=== PATIENT | male | born 1950 | race Two or more races ===

== ENCOUNTER 2017-05-20 15:29 | Observation (INO) | payer MEDICAID ==
[2017-05-20] MEDS ORDERED: ASPIRIN 81 MG TABLET, CHEWABLE PO ONE (16:43)
--- NOTE | 2017-05-20 16:49 | ER Document Report ---
ED Medical Screen (RME) - General Chief Complaint: Syncope Stated Complaint: SYNCOPE Time Seen by Provider: 05/20/17 16:42 Notes: History from Triage obtained using PCT as Distribution Driver. Patient is a 66- year-old male, past medical history hypertension, hypothyroidism, GERD, presents after a syncopal episode while he was working in the heat today. He felt lightheaded and his heart was racing prior to the incident. He did not hit his head and is currently asymptomatic at this time. Patient denies chest pain, shortness of breath, nausea, vomiting, headache, numbness, tingling, focal weakness or abdominal pain. PE: RRR. CTAB. Abdomen soft and non-tender I have greeted and performed a rapid initial assessment of this patient. A comprehensive ED assessment and evaluation of the patient, analysis of test results and completion of the medical decision making process will be conducted by additional ED providers. TRAVEL OUTSIDE OF THE [place] IN LAST 30 DAYS: No - Related Data Allergies/Adverse Reactions: No Known Allergies Allergy (Verified 05/20/17 16:38) Past Medical History - Social History Frequency of alcohol use: None Drug Abuse: None Renal/ Medical History: Denies: Hx Peritoneal Dialysis Surgical Hx: Negative Physical Exam - Vital signs Vitals: Temp Pulse Resp BP Pulse Ox 98.0 F 60 20 143/91 H 95 05/20/17 15:46 05/20/17 15:46 05/20/17 15:46 05/20/17 15:46 05/20/17 15:46 Course - Vital Signs Vital signs: Temp Pulse Resp BP Pulse Ox 98.0 F 60 18 143/91 H 95 05/20/17 15:46 05/20/17 15:46 05/20/17 16:36 05/20/17 15:46 05/20/17 15:46
[2017-05-20 17:12] LABS: ABSOLUTE BASOPHILS # (AUTO) 0.1 10^3/uL (0.0-0.2); ABSOLUTE EOSINOPHILS # (AUTO) 0.1 10^3/uL (0.0-0.6); ABSOLUTE MONOCYTES (AUTO) 0.8 10^3/uL (0.1-1.4); ABSOLUTE NEUT (AUTO) 4.1 10^3/uL (1.7-8.2); BASOPHILS % (AUTO) 0.8 % (0-2); EOSINOPHILS % (AUTO) 1.5 % (0-6); HEMATOCRIT 45.6 % (37.9-51.0); HEMOGLOBIN 14.5 g/dL (13.5-17.0); HGB HCT DIFFERENCE -2.1; LYMPHOCYTES % (AUTO) 27.6 % (13-45); MEAN CORPUSCULAR HGB CONC 31.9 g/dL (32.0-36.0); MEAN CORPUSCULAR VOLUME 72 fl (80-97); MONOCYTES % (AUTO) 11.9 % (3-13); RED BLOOD COUNT 6.32 10^6/uL (4.35-5.55); RED CELL DISTRIBUTION WIDTH 16.5 % (11.5-14.0); SEGMENTED NEUTROPHILS % (AUTO) 58.2 % (42-78); WHITE BLOOD COUNT 7.1 10^3/uL (4.0-10.5)
--- NOTE | 2017-05-20 17:22 | RADIOLOGY REPORT (SQ) ---
EXAM DESCRIPTION: CHEST SINGLE VIEW COMPLETED DATE/TIME: 05/20/2017 5:09 pm REASON FOR STUDY: syncope COMPARISON: None. EXAM PARAMETERS: NUMBER OF VIEWS: One view. TECHNIQUE: Single frontal radiographic view of the chest acquired. RADIATION DOSE: NA LIMITATIONS: None. FINDINGS: LUNGS AND PLEURA: No opacities, masses or pneumothorax. No pleural effusion. MEDIASTINUM AND HILAR STRUCTURES: No masses. Contour normal. HEART AND VASCULAR STRUCTURES: Heart normal in size. Normal vasculature. BONES: No acute findings. HARDWARE: None in the chest. OTHER: Likely nipple shadows upper lower lung zone. IMPRESSION: NO ACUTE RADIOGRAPHIC FINDING IN THE CHEST. TECHNICAL DOCUMENTATION: JOB ID: [id number]
[2017-05-20 17:23] LABS: ADD ON TESTING BLD IN LAB ACKNOWLEDGE
[2017-05-20] MEDS ORDERED: NORMAL SALINE 1000 ML 1,000 ML IV PRN ×2 (17:40→19:19)
[2017-05-20 17:42] LABS: ALANINE AMINOTRANSFERASE 25 U/L (21-72); ALBUMIN 4.2 g/dL (3.5-5.0); ALKALINE PHOSPHATASE 105 U/L (38-126); ANION GAP 10 (5-19); ASPARTATE AMINO TRANSFERASE 28 U/L (17-59); BILIRUBIN,DIRECT 0.3 mg/dL (0.0-0.4); BILIRUBIN,TOTAL 0.6 mg/dL (0.2-1.3); BLOOD UREA NITROGEN 14 mg/dL (7-20); CALCIUM 9.5 mg/dL (8.4-10.2); CARBON DIOXIDE 28 mmol/L (22-30); CHLORIDE 101 mmol/L (98-107); CREATININE RESULT 1.12 mg/dL (0.52-1.25); GLUCOSE 98 mg/dL (75-110); POTASSIUM 4.6 mmol/L (3.6-5.0); SODIUM 138.8 mmol/L (137-145); TOTAL PROTEIN 7.6 g/dL (6.3-8.2)
[2017-05-20] MEDS ORDERED: ASPIRIN 325 MG TABLET PO ONE (17:45)
--- NOTE | 2017-05-20 17:45 | ER Document Report ---
ED General - General Chief Complaint: Syncope Stated Complaint: SYNCOPE Time Seen by Provider: 05/20/17 16:42 Notes: 66-year-old male with a history of hypertension and diabetes as well as a possible positive stress test per records in 2012 presents with an episode of chest pain and palpitations followed by syncope without much prodrome. He woke up feeling well but tired. This was acute, happened about 2 hours ago and is now resolved. He was out of the sun working as and that is what he attributes it to. He denies nausea vomiting. Currently pain-free without symptoms. TRAVEL OUTSIDE OF THE [place] IN LAST 30 DAYS: No - Related Data Allergies/Adverse Reactions: No Known Allergies Allergy (Verified 05/20/17 16:38) Past Medical History - Social History Smoking Status: Never Smoker Frequency of alcohol use: None Drug Abuse: None Family History: None Patient has suicidal ideation: No Patient has homicidal ideation: No Renal/ Medical History: Denies: Hx Peritoneal Dialysis Surgical Hx: Negative Review of Systems - Review of Systems Notes: GEN: Denies fever, chills, weight loss ENT: Denies sore throat, nasal discharge, ear pain EYES: Denies blurry vision, eye pain, discharge CV: D chest pain, palpitations, syncope RESP: Denies cough, shortness of breath, wheezing GI: Denies abdominal pain, nausea, vomiting, diarrhea MSK: Denies joint pain/swelling, edema, SKIN: Denies rash, skin lesions LYMPH: Denies swollen glands/lymph nodes NEURO: Denies headache, focal weakness or numbness, dizziness PSYCH: Denies depression, suicidal or homicidal ideation Physical Exam - Vital signs Vitals: Temp Pulse Resp BP Pulse Ox 98.0 F 60 20 143/91 H 95 05/20/17 15:46 05/20/17 15:46 05/20/17 15:46 05/20/17 15:46 05/20/17 15:46 - Notes Notes: General: No acute distress, well-nourished Head: Atraumatic, normocephalic ENT: Mouth normal, oropharynx moist, no exudates or tonsillar enlargement Eyes: Conjunctiva normal, pupils equal, lids normal Neck: No JVD, supple, no guarding CVS: Normal rate, regular rhythm, no murmurs Resp: No resp distress, equal and normal breath sounds bilaterally GI: Nondistended, soft, no tenderness to palpation, no rebound or guarding Ext: No deformities, no edema, normal range of motion in upper and lower ext Skin: No rash, warm Lymphatic: No lymphadeopathy noted Neuro: Awake, alert. Face symmetric. Course - Re-evaluation Re-evalutation: 05/20/17 17:45 66-year-old male with possible history of coronary disease presenting with chest pain palpitations followed by syncope. Now asymptomatic and very well- appearing however the story is quite concerning, he has some changes on his ECG which I believe are likely due to either benign early repolarization or pericarditis, however he has no signs and symptoms of pericarditis. There is no ST depression and the ST elevation is concave appearing and this is not a STEMI in my opinion at this time. He will be given aspirin, hydration and will be admitted for syncope workup. 05/20/17 18:21 Workup negative. Admitted, spoke with Dr. Jerome who will pass admission off Dr. Cummings. Observation telemetry. - Vital Signs Vital signs: Temp Pulse Resp BP Pulse Ox 98.0 F 46 L 16 160/99 H 98 05/20/17 15:46 05/20/17 17:22 05/20/17 17:22 05/20/17 17:22 05/20/17 17:22 - Laboratory Result Diagrams: 05/20/17 17:00 05/20/17 17:00 Laboratory results interpreted by me: 05/20/17 17:00 RBC 6.32 H MCV 72 L MCH 23.0 L MCHC 31.9 L RDW 16.5 H - EKG Interpretation by Ut EKG shows normal: Sinus rhythm Rhythm: NSR Additional EKG results interpreted by me: 05/20/17 17:44 There is [address] elevation in lead II, as well as V3 through V5 with a fishhook in V5. Discharge - Discharge Clinical Impression: Syncope Qualifiers: Syncope type: unspecified Qualified Code(s): R55 - Syncope and collapse Admitting Provider: Hospitalist Unit Admitted: Telemetry
[2017-05-20] MEDS ORDERED: ACETAMINOPHEN 325 MG TABLET PO PRN (19:19)
[2017-05-20] MEDS ORDERED: ENOXAPARIN SODIUM INJ 40 MG/0.4 ML DISP.SYRIN SUBCUT ONE (19:45)
--- NOTE | 2017-05-20 21:57 | RADIOLOGY REPORT (SQ) ---
EXAM DESCRIPTION: CT HEAD WITHOUT COMPLETED DATE/TIME: 05/20/2017 9:36 pm REASON FOR STUDY: syncopal episode COMPARISON: None. TECHNIQUE: Axial images acquired through the brain without intravenous contrast. Images reviewed wi th bone, brain and subdural windows. Images stored on PACS. All CT scanners at this facility use dose modulation, iterative reconstruction, and/or weight based d osing when appropriate to reduce radiation dose to as low as reasonably achievable (ALARA). [facility]: Dose Right [facility]: CareDose [facility]: Dose Right [facility]: Teradose 4D [facility]: [employer] RADIATION DOSE: Up-to-date CT equipment and radiation dose reduction techniques were employed. CTDIv ol: 64.6 mGy. DLP: 1292 mGy-cm. mGy. LIMITATIONS: None. FINDINGS: VENTRICLES: Normal size and contour. CEREBRUM: No masses. No hemorrhage. No midline shift. Normal vides/white matter differentiation. N o evidence for acute infarction. CEREBELLUM: No masses. No hemorrhage. No alteration of density. No evidence for acute infarction. EXTRAAXIAL SPACES: No fluid collections. No masses. ORBITS AND GLOBE: No intra- or extraconal masses. Normal contour of globe without masses. CALVARIUM: No fracture. PARANASAL SINUSES: Chronic left maxillary sinus disease. SOFT TISSUES: No mass or hematoma. OTHER: No other significant finding. IMPRESSION: NORMAL BRAIN CT WITHOUT CONTRAST. TECHNICAL DOCUMENTATION: JOB ID: [id number] Quality ID # [id number]: Final reports with documentation of one or more dose reduction techniques (e.g., Au tomated exposure control, adjustment of the mA and/or kV according to patient size, use of iterative reconstruction technique) 2010 [employer]- All Rights Reserved
[2017-05-21 02:13] LABS: TROPONIN I < 0.012 ng/mL
[2017-05-21] MEDS ORDERED: LANSOPRAZOLE 30 MG TAB.RAP.DR PO SCH (06:00)
[2017-05-21 07:55] LABS: ABSOLUTE EOSINOPHILS # (AUTO) 0.1 10^3/uL (0.0-0.6); ABSOLUTE LYMPHOCYTES (AUTO) 1.6 10^3/uL (0.5-4.7); ABSOLUTE MONOCYTES (AUTO) 0.5 10^3/uL (0.1-1.4); ABSOLUTE NEUT (AUTO) 2.6 10^3/uL (1.7-8.2); BASOPHILS % (AUTO) 0.9 % (0-2); HEMATOCRIT 41.8 % (37.9-51.0); HEMOGLOBIN 13.1 g/dL (13.5-17.0); HGB HCT DIFFERENCE -2.5; LYMPHOCYTES % (AUTO) 32.1 % (13-45); MEAN CORPUSCULAR HEMOGLOBIN 22.5 pg (27.0-33.4); MEAN CORPUSCULAR HGB CONC 31.4 g/dL (32.0-36.0); MEAN CORPUSCULAR VOLUME 72 fl (80-97); MONOCYTES % (AUTO) 11.1 % (3-13); RED BLOOD COUNT 5.83 10^6/uL (4.35-5.55); RED CELL DISTRIBUTION WIDTH 16.8 % (11.5-14.0); SEGMENTED NEUTROPHILS % (AUTO) 53.9 % (42-78); WHITE BLOOD COUNT 4.8 10^3/uL (4.0-10.5)
[2017-05-21 08:37] LABS: ANION GAP 7 (5-19); BLOOD UREA NITROGEN 12 mg/dL (7-20); CALCIUM 8.9 mg/dL (8.4-10.2); CARBON DIOXIDE 25 mmol/L (22-30); CHLORIDE 107 mmol/L (98-107); CREATININE RESULT 1.02 mg/dL (0.52-1.25); GLUCOSE 85 mg/dL (75-110); POTASSIUM 4.1 mmol/L (3.6-5.0); SODIUM 138.5 mmol/L (137-145)
[2017-05-21 08:47] LABS: CREATINE KINASE MB 1.49 ng/mL (<4.55)
[2017-05-21 08:54] LABS: TROPONIN I < 0.012 ng/mL
--- NOTE | 2017-05-21 09:51 | PDOC H&P ---
History of Present Illness Admission Date/PCP: 05/20/17 19:19 KIERSTEN LUNA MD Patient complains of: Chest pain and passing out History of Present Illness: HERNAN HENDRICKS is a 66 year old male This 66-year-old male with a history of the type 2 diabetes history of the hypertensions and history of the gastric reflux disorders was working outside in the hot weather and noticed some chest pain and palpitations and the passing out for a few seconds without loss of consciousness and came to the emergency departmentWe will initial workup was all negatives. Patient's all cardiac enzyme CT head and d-dimer all negative Patient also scheduled for the GI workup today as outpatient Patient had a stress test done in 2011 and was positive and I am not sure the patient's was followed after that with the cardiology. We admit the patient's and consulted cardiology for further workup Past Medical History Cardiac Medical History: Reports: Hyperlipidema, Hypertension Pulmonary Medical History: Reports: Sleep Apnea Endocrine Medical History: Reports: Diabetes Mellitus Type 2 GI Medical History: Reports: Gastroesophageal Reflux Disease Musculoskeltal Medical History: Reports: Arthritis Social History Smoking Status: Never Smoker Family History Family History: None, Reviewed & Not Pertinent Parental Family History Reviewed: Yes Children Family History Reviewed: Yes Sibling(s) Family History Reviewed.: Yes Medication/Allergy Home Medications: Chlorthalidone [Chlorthalidone 25 mg Tablet] 0.5 tab PO DAILY 05/20/17 Levothyroxine Sodium 1 tab PO DAILY 05/20/17 Pantoprazole Sodium 40 mg PO DAILY 05/20/17 Simvastatin 10 mg PO QPM 05/20/17 Allergies/Adverse Reactions: No Known Allergies Allergy (Verified 05/20/17 16:38) Review of Systems Constitutional: ABSENT: chills, fever(s), headache(s), weight gain, weight loss Eyes: ABSENT: visual disturbances Ears: ABSENT: hearing changes Cardiovascular: ABSENT: chest pain, dyspnea on exertion, edema, orthropnea, palpitations Respiratory: ABSENT: cough, hemoptysis Gastrointestinal: ABSENT: abdominal pain, constipation, diarrhea, hematemesis, hematochezia, nausea, vomiting Genitourinary: ABSENT: dysuria, hematuria Musculoskeletal: ABSENT: joint swelling Integumentary: ABSENT: rash, wounds Neurological: ABSENT: abnormal gait, abnormal speech, confusion, dizziness, focal weakness, syncope Psychiatric: ABSENT: anxiety, depression, homidical ideation, suicidal ideation Endocrine: ABSENT: cold intolerance, heat intolerance, menstrual abnormalities, polydipsia, polyuria Hematologic/Lymphatic: ABSENT: easy bleeding, easy bruising, lymphadenopathy Physical Exam Vital Signs: Temp Pulse Resp BP Pulse Ox 97.7 F 51 L 16 137/91 H 100 05/21/17 07:35 05/21/17 07:35 05/21/17 07:35 05/21/17 07:35 05/21/17 07:35 Intake & Output 05/20/17 05/21/17 05/22/17 06:59 06:59 06:59 Intake Total 970 Balance 970 Weight 68.2 kg General appearance: PRESENT: no acute distress, well-developed, well-nourished Head exam: PRESENT: atraumatic, normocephalic Eye exam: PRESENT: conjunctiva pink, EOMI, PERRLA. ABSENT: scleral icterus Ear exam: PRESENT: normal external ear exam Mouth exam: PRESENT: moist, tongue midline Neck exam: PRESENT: full ROM. ABSENT: carotid bruit, JVD, lymphadenopathy, thyromegaly Respiratory exam: PRESENT: clear to auscultation alis Cardiovascular exam: PRESENT: RRR. ABSENT: diastolic murmur, rubs, systolic murmur Pulses: PRESENT: normal dorsalis pedis pul, +2 pedal pulses bilateral Vascular exam: PRESENT: normal capillary refill GI/Abdominal exam: PRESENT: normal bowel sounds, soft. ABSENT: distended, guarding, mass, organolmegaly, rebound, tenderness Rectal exam: PRESENT: deferred Neurological exam: PRESENT: alert, awake, oriented to person, oriented to place , oriented to time, oriented to situation, CN II-XII grossly intact, normal gait. ABSENT: motor sensory deficit Psychiatric exam: PRESENT: appropriate affect, normal mood. ABSENT: homicidal ideation, suicidal ideation Skin exam: PRESENT: dry, intact, warm. ABSENT: cyanosis, rash Results Laboratory Results: 05/21/17 07:30 05/21/17 07:30 05/21/17 05/21/17 07:30 07:30 WBC 4.8 RBC 5.83 H Hgb 13.1 L Hct 41.8 MCV 72 L MCH 22.5 L MCHC 31.4 L RDW 16.8 H Plt Count 173 Seg Neutrophils % 53.9 Lymphocytes % 32.1 Monocytes % 11.1 Eosinophils % 2.0 Basophils % 0.9 Absolute Neutrophils 2.6 Absolute Lymphocytes 1.6 Absolute Monocytes 0.5 Absolute Eosinophils 0.1 Absolute Basophils 0.0 Sodium 138.5 Potassium 4.1 Chloride 107 Carbon Dioxide 25 Anion Gap 7 BUN 12 Creatinine 1.02 Est GFR ( Amer) > 60 Est GFR (Non-Af Amer) > 60 Glucose 85 Calcium 8.9 05/20/17 05/20/17 05/20/17 19:30 19:30 19:30 Creatine Kinase 124 CK-MB (CK-2) 2.30 Troponin I 0.014 Cancelled 05/21/17 05/21/17 05/21/17 01:25 01:25 07:30 Creatine Kinase 95 CK-MB (CK-2) 1.80 1.49 Troponin I < 0.012 < 0.012 Impressions: Head CT 05/20/17 00:00 IMPRESSION: NORMAL BRAIN CT WITHOUT CONTRAST. Chest X-Ray 05/20/17 16:42 IMPRESSION: NO ACUTE RADIOGRAPHIC FINDING IN THE CHEST. Assessment & Plan - Diagnosis (1) Syncope Qualifiers: Syncope type: unspecified Qualified Code(s): R55 - Syncope and collapse Is this a current diagnosis for this admission?: YesPlan: Most likely a from dehydration's with the patient was working outside patient CT head was negative and other workup is also negative to (2) Chest pain Qualifiers: Chest pain type: unspecified Qualified Code(s): R07.9 - Chest pain, unspecified Is this a current diagnosis for this admission?: YesPlan: Will rule out the acute coronary syndrome with the history of the positive stress test in 2011 will consult the cardiology for further evaluationsPatient' s currently denied any chest pain (3) Hypertension Qualifiers: Hypertension type: essential hypertension Qualified Code(s): I10 - Essential (primary) hypertension Is this a current diagnosis for this admission?: YesPlan: Continues to current medications (4) Hyperlipidemia Qualifiers: Hyperlipidemia type: other hyperlipidemia Qualified Code(s): E78.4 - Other hyperlipidemia Is this a current diagnosis for this admission?: YesPlan: Continues current medications (5) GERD (gastroesophageal reflux disease) Qualifiers: Esophagitis presence: without esophagitis Qualified Code(s): K21.9 - Gastro-esophageal reflux disease without esophagitis Is this a current diagnosis for this admission?: YesPlan: Patient's currently see a GI and scheduled for some procedure today (6) Sleep apnea Qualifiers: Sleep apnea type: unspecified type Qualified Code(s): G47.30 - Sleep apnea, unspecified Is this a current diagnosis for this admission?: YesPlan: Continues to use CPAP machine (7) Type 2 diabetes mellitus Qualifiers: Diabetes mellitus complication status: with unspecified complications Is this a current diagnosis for this admission?: YesPlan: Continues current medications - Time Time Spent: 30 to 50 Minutes Medications reviewed and adjusted accordingly: Yes Anticipated discharge: Home Within: within 24 hours - Inpatient Certification Medical Necessity: Need Close Monitoring Due to Risk of Patient Decompensation Post Hospital Care: D/C English Professor Documentation - Plan Summary Plan Summary: Discussed with the patient about her current conditions with the principal account clerk because patients does not understand Ukrainian very well. Patient understands very well with the principal account clerk and currently doing well will consult the cardiology and further evaluate
[2017-05-21] MEDS ORDERED: ENOXAPARIN SODIUM INJ 40 MG/0.4 ML DISP.SYRIN SUBCUT SCH (10:00)
[2017-05-21] MEDS ORDERED: ACETAMINOPHEN 325 MG TABLET PO PRN (10:13)
[2017-05-21 10:59] VITALS: BP 140/85
[2017-05-21] MEDS ORDERED: LEVOTHYROXINE SODIUM 0.025 MG TABLET PO ONE (11:00)
[2017-05-21] MEDS ORDERED: CHLORTHALIDONE 25 MG TABLET PO ONE (11:00)
--- NOTE | 2017-05-21 13:01 | PDOC DISCHARGE SUMMARY ---
General - Admit/Disc Date/PCP Admission Date/Primary Care Provider: 05/20/17 19:19 KIERSTEN LUNA MD Discharge Date: 05/21/17 - Discharge Diagnosis (1) Syncope Is this a current diagnosis for this admission?: YesSummary: All stable and all workup is negative most likely M working outside and may be dehydration's (2) Chest pain Is this a current diagnosis for this admission?: YesSummary: Negative cardiac workup negative d-dimer patient's denied any chest pain anymore seen by the director strategic planning and follow outpatients for further stress test (3) Hypertension Is this a current diagnosis for this admission?: YesSummary: Currently all stable (4) Hyperlipidemia Is this a current diagnosis for this admission?: YesSummary: Continues current medications (5) GERD (gastroesophageal reflux disease) Is this a current diagnosis for this admission?: YesSummary: Continues current medication (6) Sleep apnea Is this a current diagnosis for this admission?: YesSummary: Stable (7) Type 2 diabetes mellitus Is this a current diagnosis for this admission?: YesSummary: Stable - Additional Information Discharge Diet: Cardiac, Diabetic Discharge Activity: Activity As Tolerated Home Medications: Chlorthalidone [Chlorthalidone 25 mg Tablet] 0.5 tab PO DAILY 05/20/17 Levothyroxine Sodium 1 tab PO DAILY 05/20/17 Pantoprazole Sodium 40 mg PO DAILY 05/20/17 Simvastatin 10 mg PO QPM 05/20/17 Aspirin 81 mg PO DAILY PRN #1 pkg 05/21/17 History of Present Illness History of Present Illness: HERNAN HENDRICKS is a 66 year old male This 66-year-old male with a history of the type 2 diabetes history of the hypertensions and history of the gastric reflux disorders was working outside in the hot weather and noticed some chest pain and palpitations and the passing out for a few seconds without loss of consciousness and came to the emergency departmentWe will initial workup was all negatives. Patient's all cardiac enzyme CT head and d-dimer all negative Patient also scheduled for the GI workup today as outpatient Patient had a stress test done in 2011 and was positive and I am not sure the patient's was followed after that with the cardiology. We admit the patient's and consulted cardiology for further workup Hospital Course Hospital Course: There is a 66-year-old Chilean-speaking patient's admitting in the hospital because of the syncopal episode with chest pain episode while working outsideAnd initial workup was all negative patient was admitted to rule out acute coronary syndrome was also negative and cardiology was consulted and also negative workup per cardiology and suggest follow outpatientPatient CT head was also negative Patient at this points discharged home with the stable conditions patient's walk in the hallway and patient's p.o. intake is good and patients denied any other complaints Physical Exam Vital Signs: Temp Pulse Resp BP Pulse Ox 97.7 F 51 L 16 140/85 H 100 05/21/17 10:45 05/21/17 10:45 05/21/17 10:45 05/21/17 10:45 05/21/17 10:45 Intake & Output 05/20/17 05/21/17 05/22/17 06:59 06:59 06:59 Intake Total 970 Balance 970 Weight 68.2 kg General appearance: PRESENT: no acute distress, well-developed, well-nourished Head exam: PRESENT: atraumatic, normocephalic Eye exam: PRESENT: conjunctiva pink, EOMI, PERRLA. ABSENT: scleral icterus Ear exam: PRESENT: normal external ear exam Mouth exam: PRESENT: moist, tongue midline Neck exam: PRESENT: full ROM. ABSENT: carotid bruit, JVD, lymphadenopathy, thyromegaly Respiratory exam: PRESENT: clear to auscultation alis Cardiovascular exam: PRESENT: RRR. ABSENT: diastolic murmur, rubs, systolic murmur Pulses: PRESENT: normal dorsalis pedis pul, +2 pedal pulses bilateral Vascular exam: PRESENT: normal capillary refill GI/Abdominal exam: PRESENT: normal bowel sounds, soft. ABSENT: distended, guarding, mass, organolmegaly, rebound, tenderness Rectal exam: PRESENT: deferred Neurological exam: PRESENT: alert, awake, oriented to person, oriented to place , oriented to time, oriented to situation, CN II-XII grossly intact. ABSENT: motor sensory deficit Psychiatric exam: PRESENT: appropriate affect, normal mood. ABSENT: homicidal ideation, suicidal ideation Skin exam: PRESENT: dry, intact, warm. ABSENT: cyanosis, rash Results Laboratory Results: 05/21/17 07:30 05/21/17 07:30 05/21/17 05/21/17 07:30 07:30 WBC 4.8 RBC 5.83 H Hgb 13.1 L Hct 41.8 MCV 72 L MCH 22.5 L MCHC 31.4 L RDW 16.8 H Plt Count 173 Seg Neutrophils % 53.9 Lymphocytes % 32.1 Monocytes % 11.1 Eosinophils % 2.0 Basophils % 0.9 Absolute Neutrophils 2.6 Absolute Lymphocytes 1.6 Absolute Monocytes 0.5 Absolute Eosinophils 0.1 Absolute Basophils 0.0 Sodium 138.5 Potassium 4.1 Chloride 107 Carbon Dioxide 25 Anion Gap 7 BUN 12 Creatinine 1.02 Est GFR ( Amer) > 60 Est GFR (Non-Af Amer) > 60 Glucose 85 Calcium 8.9 05/20/17 05/20/17 05/20/17 19:30 19:30 19:30 Creatine Kinase 124 CK-MB (CK-2) 2.30 Troponin I 0.014 Cancelled 05/21/17 05/21/17 05/21/17 01:25 01:25 07:30 Creatine Kinase 95 65 CK-MB (CK-2) 1.80 Troponin I < 0.012 05/21/17 07:30 Creatine Kinase CK-MB (CK-2) 1.49 Troponin I < 0.012 Impressions: Head CT 05/20/17 00:00 IMPRESSION: NORMAL BRAIN CT WITHOUT CONTRAST. Chest X-Ray 05/20/17 16:42 IMPRESSION: NO ACUTE RADIOGRAPHIC FINDING IN THE CHEST. Plan Time Spent: Less than 30 Minutes - Discharge home with the stable conditions following a one-week and follow with the cardiology
--- NOTE | 2017-05-21 21:59 | CONSULTATION REPORT E ---
Consultation Report NAME: HERNAN HENDRICKS : 1950 AGE: 66Y DATE: 05/21/2017 416 A TO: RAYSHAWN EISENBERG M.D. FROM: KIERSTEN LUNA M.D. Requesting Physician REASON FOR CONSULTATION: Chest pain with dizziness and near syncope but no definite true syncope. HISTORY OF PRESENT ILLNESS: Note, I tried to get Royer, the video land mobile radio technician, but the patient could not hear her because of the patient being hard of hearing. But the patient was able to speak in broken [place] and answer questions, and also I used some Turkish words to make the patient understand like taking a deep breath or whether he is short of breath which he answered. Hence, the help of the video land mobile radio technician was stopped, since the patient could not hear her due to the patient's hearing loss. The patient is a 66-year-old male with a history of type-2 diabetes mellitus diet-controlled, history of hypertension, history of gastroesophageal reflux disease and history of hypothyroidism and history of GERD. He states that he was working and he had sudden onset of severe pain across the chest lasting for about 5-10 minutes. At the same time the patient states he feels very dizzy and the room was spinning and he had a near syncopal episode but denies loss of consciousness. There is no injury. The patient has a known history of CAD by stress testing. In 2011 he had a stress test which showed mild ischemia in the anterior wall but the patient was treated medically since he had no anginal symptoms. The patient states that he was short of breath with chest pains but there are no palpitations. There is no leg edema. There are no symptoms of PND or orthopnea. PAST MEDICAL HISTORY: Positive for history of hypertension, hyperlipidemia, hypothyroidism, diabetes mellitus type 2 diet controlled. He also has a history of sleep apnea. I am unable to verify if the patient uses BiPAP. He also has GERD and also a history of arthritis. SOCIAL HISTORY: The patient has never smoked. FAMILY HISTORY: Negative for coronary artery disease and positive for hypertension. SURGICAL HISTORY: Denies any past surgical history. ALLERGIES: No known drug allergies. MEDICATIONS: 1. Chlorthalidone 25 mg 1/2 tablet daily. 2. Levothyroxine 25 mcg p.o. daily. 3. Pantoprazole sodium 40 mg p.o. daily. 4. Simvastatin 10 mg p.o. daily. REVIEW OF SYSTEMS: CONSTITUTIONAL: Denies any fever, chills or rigors. HEENT: Head: Complains of dizziness and vertigo as mentioned earlier but no history of head injury. Eyes: No history of amblyopia or diplopia. No history of amaurosis fugax. Ears: The patient is hard of hearing. There is no recurrent ear infections. Nose: There is no history of nosebleeds. Mouth: No history of altered taste sensation, no ulcers in the mouth. Throat: No problems swallowing and there is no painful swallowing. SKIN: There is no psoriasis. There is no yellowish discoloration of the skin. NECK: No neck pain and no goiter. LUNGS: No history of asthma or COPD. No history of cough or sputum production. No history of wheezing. No history of pulmonary embolism. No history of hemoptysis or pleuritic chest pain. History of sleep apnea; I cannot verify if the patient wears CPAP or not. CARDIAC: History of hypertension. History of abnormal stress test in 2011 which showed mild reversible ischemia in the anterior wall. The patient did not show up for followup when I saw him and discussed the stress test and asked him to come back in 2 months. He has had no angina and hence he was treated medically. RENAL: No history of chronic kidney disease. No symptoms of UTI. GASTROINTESTINAL: History of GERD present. No history of GI bleed. No history of gallbladder problems. No history of altered bowel movements. MUSCULOSKELETAL: The patient has a history of arthritis but no collagen disease. CENTRAL NERVOUS SYSTEM: No history of TIA or CVA. No history of seizures, headaches, migraines. PSYCHIATRIC: No history of anxiety or depression. No history of suicidal ideation. The rest of the review of systems are essentially negative and it is very difficult and limited review of systems due to the patient's speaking only broken [place]. PHYSICAL EXAMINATION: GENERAL: Patient is seen at 10:50 a.m. and 40 minutes spent on this patient. VITAL SIGNS: The patient is afebrile with a temperature of 97.7 degrees Fahrenheit. Pulse is 55 beats per minute, blood pressure 140/85, respirations 16 per minute, 02 sats are 100% on room air. HEENT: Head is atraumatic, normocephalic. Eyes: Pupils are equal, round, regular, reactive to light and accommodation. Extraocular movements are normal. There is no conjunctival pallor. There is no scleral icterus. Ears: Tympanic membranes are intact. External auditory canals are clear. Nose: There is no deviated nasal septum. There is no inflammation of the nasal mucous membranes. Mouth: Mucous membranes of the mouth are moist. Tongue is moist. There are no ulcers. There is no bleeding from the gums. Throat: There is no redness of the oropharynx. There are no exudates. SKIN: There are no skin rashes. There is no petechia or ecchymosis. There are no skin lesions. NECK: Supple. There is no JVD. There is no lymphadenopathy. There is no goiter. Carotids are equal. There is no bruit. Trachea is central. LUNGS: Clear to auscultation and percussion. There is no chest wall tenderness. HEART: S1 and S2 are heard. There is no S3 gallop. There is no S4 gallop. There is a systolic murmur in the left sternal border and also in the apex with radiation to the left axilla consistent with mitral regurgitation, question severity. There is no rub. ABDOMEN: Soft, nontender. There is no hepatosplenomegaly. Bowel sounds are well heard. EXTREMITIES: Femorals are well felt. There are no femoral bruits. Leg pulses are well felt. There is no pedal edema. There is no DVT or cellulitis. There is no cyanosis or clubbing. There is no calf tenderness. Capillary refill is normal. CENTRAL NERVOUS SYSTEM: The patient is conscious, awake, alert, oriented x3 with no focal deficits. PSYCHIATRIC: The patient's judgment and insight are intact. his affect is normal. DIAGNOSTIC TEST RESULTS: The patient's head CT is negative and is a normal brain CT without contrast. The patient's chest x-ray is negative. The patient's EKG shows no acute changes. The patient's white count is 4800, hemoglobin is 13.1, hematocrit is 41.8, and his platelet count is 173,000. The patient's sodium is 138.5, potassium 4.1, chloride 107, CO2 25, the patient's BUN is 12, creatinine is 1.02, GFR is greater than 60, glucose is 85, calcium is 8.9. The patient's CPK and CPK-MB are negative. His troponin I have been negative x4. His TSH is 1.72, his albumin is 4.2, total protein is 7.6. His D-dimer is less than 0.27. IMPRESSION: 1. Chest pain, sounds to be atypical. No acute EKG changes and negative for elevation of troponin I, hence, no evidence of non-ST elevation [place]. 2. Dizziness, vertigo and near syncope, question etiology. 3. Hypertension. 4. Diabetes mellitus type 2, diet-controlled. 5. Systolic murmur of mitral regurgitation. 6. Hyperlipidemia. 7. Obstructive sleep apnea. 8. GERD. 9. Hypothyroidism. 10. Arthritis. RECOMMENDATIONS: [place] has been ruled out. We will continue the patient's current medications. His blood pressure is well controlled on the current medication. Note, in view of GERD, the patient is not able to take aspirin. We would recommend that the patient have an outpatient 30-day event monitor to assess the patient's near syncopal episodes, although he denies palpitations, but he did have shortness of breath and chest pain prior to that. Also would get an echocardiogram for LV ejection fraction and wall motion abnormalities and the severity of mitral regurgitation murmur. Also would recommend that the patient have an exercise treadmill Cardiolite versus IV Lexiscan Cardiolite stress test. These 3 tests can be done as an outpatient. The patient has been a patient of mine in the past and even though his last visit was February 2012, he desires to follow up with me; hence, we will have him see me in the office and I will give him my cell phone number. He wanted me and my office to contact Ms. Gilbert if things went wrong. Note that the patient is a FULL CODE. Ms. Gilbert is his surrogate healthcare decision maker. NOTE: This case involved highly complex medical decision making in view of the patient's lack of fluent spoken [place] and the patient has a history of coronary artery disease by prior stress study. His medications were reviewed and discussed with the attending physician on the case and coordination of care done. Note that 40 minutes spent on the patient with more than 50% of the time spent on direct patient care. The patient was seen around 10 a.m. this morning. We will follow the patient in outpatient and get the patient's above tests scheduled. The patient has been given my cell number to call me if he has any problems. Thanking you. DICTATING PHYSICIAN: RAYSHAWN EISENBERG M.D. [id number] PHY#: [id number] ID: [id number] JOB#: [id number] ACCT: [id number] cc:RAYSHAWN EISENBERG M.D. >
[2017-05-22] MEDS ORDERED: LEVOTHYROXINE SODIUM 0.025 MG TABLET PO SCH (06:00)
[2017-05-22] MEDS ORDERED: LANSOPRAZOLE 30 MG TAB.RAP.DR PO SCH (06:00)
[2017-05-22] MEDS ORDERED: CHLORTHALIDONE 25 MG TABLET PO SCH (10:00)
== END 2017-05-21 11:37 | disposition home or self-care (01) ==
LOC: ER 15:29 → UNDOADMIN 18:56 → EH 18:56 → INTOOBSV 19:19 → EH 19:19 → 4W 20:46 → EH 20:46
PROVIDERS: ADMIT Family Medicine; ATTEND Family Medicine
DX: R55 Syncope and collapse (principal); R07.9 Chest pain, unspecified; I10 Essential (primary) hypertension; E78.4 Other hyperlipidemia; K21.9 Gastro-esophageal reflux disease without esophagitis; G47.33 Obstructive sleep apnea (adult) (pediatric); E11.9 Type 2 diabetes mellitus without complications; H91.90 Unspecified hearing loss, unspecified ear; M19.90 Unspecified osteoarthritis, unspecified site; R42 Dizziness and giddiness; I34.0 Nonrheumatic mitral (valve) insufficiency; E03.9 Hypothyroidism, unspecified; I25.10 Atherosclerotic heart disease of native coronary artery without angina pectoris; Z79.899 Other long term (current) drug therapy; Z79.82 Long term (current) use of aspirin; Z82.49 Family history of ischemic heart disease and other diseases of the circulatory system
CPT/HCPCS: 99285; 96372; 96360; 96361; 36415 ×2; 82553 ×2; 82550 ×2; 84443; 85025 ×2; 80048; 80053; 84484 ×2; 85379; 71010; 70450; G0378 ×3; J3490; J1650; J7030